=== PATIENT | female | born 1955 | race Caucasian/White ===

== ENCOUNTER → 2016-06-21 09:52 | Outpatient (CLI) | payer BC | END | disposition home or self-care (01) | LOC: D.CT 09:52 | DX: M54.5 Low back pain (principal) ==

== ENCOUNTER → 2016-12-26 09:35 | Outpatient (CLI) | payer BC ==
--- NOTE | 2016-12-30 09:53 | EC ---
PATIENT:TEJAS EGAN DATE OF SERVICE: 12/26/16 SEX: F MEDICAL RECORD: [id number] DATE OF : 53 LOCATION:[facility] AGE OF PATIENT: 61 ADMISSION DATE: 12/26/16 REFERRING PHYSICIAN: INTERPRETING PHYSICIAN: ELENA ZARCO MD ECHOCARDIOGRAM REPORT ECHO CHARGES 4 ECHO COMPLETE CLINICAL DIAGNOSIS: CHEST PAIN, PALPITATIONS ECHOCARDIOGRAPHIC MEASUREMENTS (adult normal given) AC root (d.<3.7cm) 3.2 cm LV Septum d (<1.2 cm> 1.0 cm Valve Excursion 1.5 cm LV Septum (systole) 1.2 cm Left Atria (s.<4.0cm> 3.7 cm LVPW d(<1.2cm) 1.1 cm RV (d.<2.3cm) 2.9 cm LVPW (sytole) 1.5 cm LV diastole(<5.6CM) 5.0 cm MV E-F(>70mm/sec) cm LV systole 2.7 cm LVOT Diameter 1.8 cm MV exc.(>10mm) cm Est.ejection fraction (50-75%) % Pericardial Effusion N DOPPLER: LVIT cm/sec A 76.0 cm/sec E 97.0 cm/sec LA cm/sec RVSP 29 mmHg LVOT 105 cm/sec AOP1/2T m/s Asc. 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 Zarco TAPE# PACS DATE OF SERVICE: 12/26/2016 TRANSTHORACIC ECHOCARDIOGRAM FINDINGS: 1. Left ventricle has a normal size, normal function, inflow characteristics are normal. The ejection fraction is 65%. 2. The right ventricle is normal size, normal function. 3. The aortic valve appears to be normal. No evidence of significant aortic valve pathology. ECHOCARDIOGRAM REPORT [id number] TEJAS EGAN 4. The mitral valve is normal size. Mild mitral regurgitation. 5. The tricuspid valve has mild tricuspid regurgitation, normal right ventricular systolic pressures. 6. The pericardium is normal without evidence of significant pericardial effusion. There is trace pericardial effusion. 7. Left atrium is upper limits of normal, but still in the normal limits in size and normal function. 8. The IVC is normal size and collapses with inspiration. CONCLUSIONS: This is a normal echocardiogram for the patient's stated age. TRANSINT:[id number] Voice Confirmation ID: [id number] DOCUMENT ID: [id number] ELENA ZARCO MD at 0953 CC: [id number] DICTATION DATE: 12/27/16 1249 FLIGHT LINE MECHANIC: 12/27/16 1311 DEP CLI 12/26/16 [facility] [address] [place] [address]
== END | disposition home or self-care (01) ==
LOC: D.ECHO 09:35
DX: R07.9 Chest pain, unspecified (principal); R00.2 Palpitations